=== PATIENT | male | born 1970 | race Two or more races ===

== ENCOUNTER 2016-12-16 15:37 | Emergency (ER) | payer OTHER ==
[2016-12-16 16:38] VITALS: RESP 18; TEMP 99
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
[2016-12-16 17:55] VITALS: BP 108/74; PULSE 80; O2SAT 95
== END 2016-12-16 17:46 | disposition home or self-care (01) ==
LOC: CED 15:37
DX: S16.1XXA Strain of muscle, fascia and tendon at neck level, initial encounter (principal); F17.200 Nicotine dependence, unspecified, uncomplicated; V49.40XA Driver injured in collision with unspecified motor vehicles in traffic accident, initial encounter; Y92.410 Unspecified street and highway as the place of occurrence of the external cause; Y99.8 Other external cause status; Y93.89 Activity, other specified
CPT/HCPCS: 70450-PO; 72125-PO